=== PATIENT | male | born 1935 | race Caucasian/White ===

== ENCOUNTER → 2018-12-10 | Outpatient (CLI) | payer MEDICARE ==
--- NOTE | 2018-12-10 10:32 | Diagnostic Imaging Report ---
EXAM: Scrotal Ultrasound INDICATION: ^Balanoposthitis COMPARISON: None TECHNIQUE: Transverse and longitudinal images were obtained of the scrotum with grayscale imaging, color Doppler and spectral waveform analysis. FINDINGS: Right testis: Size: 3.4 x 2.1 x 2.4 cm, normal in size. Echogenicity: Normal Mass/Cysts: None Left testis: Size: 3.3 x 1.7 x 2.8 cm, normal in size. Echogenicity: Normal Mass/Cysts: None Epididymis: Appearance: Normal in size without increased vascularity. Mass/Cysts: 0.7 x 0.4 x 0.5 cm left epididymal cyst Extratesticular: Masses: None Fluid collections: Small right and left hydroceles. Small right and left varicoceles. Doppler: Normal arterial flow to both testes and symmetrical flow on color Doppler evaluation is seen. No evidence of testicular torsion. IMPRESSION: No evidence of testicular torsion. 0.7 x 0.4 x 0.5 cm left epididymal cyst. Small right and left hydroceles. Small right and left varicoceles. Signed by: Dr. Robbie Castellanos M.D. on 12/10/2018 10:29 AM
== END ==
LOC: EDBD 12-03 11:30 → US 09:20
PROVIDERS: ATTEND Urology
DX: N47.6 Balanoposthitis (principal)
CPT/HCPCS: 76870; 93976